=== PATIENT | male | born 1985 | race Asian ===

== ENCOUNTER 2016-05-18 19:08 | Emergency (ER) | payer SELFPAY ==
--- NOTE | ~2016-05-18 | ER ---
PATIENT'S NAME: [facility] AGE: 30 Y [address] ROOM: [place] [address] LOCATION: ED ADMIT DATE: 05/18/2016 ER/Outpatient Report DISCHARGE DATE: 05/18/2016 FAMILY PHYSICIAN: PHYSICIAN, NO ATTENDING PHYSICIAN: Kayden Juarez Time of Arrival: 1912 hours. Time of Evaluation: 1912 hours. CHIEF COMPLAINT: Abdominal pain. HISTORY OF PRESENT ILLNESS: The patient states having right lower quadrant abdominal pain that began on , May 13, 2016. It has steadily gotten worse. He was seen yesterday at the [place] [facility], checked for possible kidney stone, that was all negative. He said the pain today really got intense at about 4 o'clock. He has had urinary frequency. He has had a crampy stabbing-type pain that is worse at times. It waxes and wanes in severity. He states he did have some blood in his stool today. Pain is primarily in the right lower quadrant, but does radiate around into the right flank area. Denies having any cough, cold, runny nose, chest congestion, has not been nauseated, has not vomited, has not had a fever. He did have a small bowel movement today and that is when he noted the blood when he wiped. ALLERGIES: NO KNOWN ALLERGIES. CURRENT MEDICATIONS: None. PAST MEDICAL HISTORY: Kidney stones. PAST SURGICAL HISTORY: Kidney stone removal. SOCIAL HISTORY: He states he does smoke 3 cigarettes per day. He has smoked for the last 17 years. Denies use of drugs. He states he only drinks alcohol on a social basis. REVIEW OF SYSTEMS: All negative other than those mentioned in the HPI. PATIENT'S NAME: [facility] AGE: 30 Y [address] ROOM: [place] [address] LOCATION: [facility] ADMIT DATE: 05/18/2016 ER/Outpatient Report DISCHARGE DATE: 05/18/2016 FAMILY PHYSICIAN: PHYSICIAN, NO ATTENDING PHYSICIAN: Kayden Juarez PHYSICAL EXAMINATION: VITAL SIGNS: He states he is 6 feet tall, he weighed 89.4 kg, blood pressure is 122/65, pulse of 95, respirations 18, temperature of 98, O2 saturation is 95% on room air. GENERAL: He is awake, alert, and oriented x4. SKIN: [place], warm, and dry. RESPIRATIONS: Even and nonlabored. LUNGS: Lung sounds were clear throughout. HEART: Regular rate and rhythm. ABDOMEN: Soft and nondistended. Bowel sounds are hyperactive in all quadrants. He has generalized tenderness in the right lower quadrant area. No masses felt. No organomegaly is noted. No CVA tenderness. With checking of his back, he does have some generalized pain that radiates into the right groin at times. No rashes noted of groin area. No deformity noted. EMERGENCY DEPARTMENT COURSE: Saline lock was initiated. Fluids of normal saline were started at a wide- open rate. He was given Toradol 30 mg IV. CBC is within normal limits. Chem panel is within normal limits. Procalcitonin was less than 0.05. Sedimentation rate was 7. CRP was 0.39. Lactate was 1.4. Clean-catch UA was negative. I did do a CT scan with contrast. Radiology report is on the chart, please review. He does have some prominent right lower quadrant lymph nodes near the terminal ileum. CT scan shows mild enteritis or terminal ileitis. Dr. Juarez consulted about the patient. IMPRESSION: Right lower quadrant abdominal pain, ileitis per the CAT scan. PLAN: Home, rest, fluids. Discussed with the patient easy digest-type foods. Gave him the contact information to contact the manager mechanical maintenance, Dr. Silverio, or Janie Bernard APRN. He should contact him and make arrangements to be seen in the next couple days. If the pain changes in any way, he is welcome to return to the ER. He verbalized understanding. LARRY BROWNING APRN FOR MD ISABELLA MARISCAL/jairo /[id number] d: 05/19/16 0216 t: 05/20/16 1304, OUTPATIENT REPORT
[2016-05-18 19:53] LABS: BASOPHIL % 0.3 %; EOSINOPHIL # 0.2 K/uL (0.0-0.5); EOSINOPHIL % 1.9 %; HEMATOCRIT 46.2 % (37.0-53.0); HEMOGLOBIN 15.2 g/dL (12.0-17.0); IMMATURE GRANULOCYTE % 0.3 %; LYMPHOCYTE # 2.9 K/uL (0.8-4.0); LYMPHOCYTE % 28.7 %; MCHC 32.9 gm/dL (32.0-36.5); MCV 88.2 fl (83.0-98.0); MONOCYTE # 0.9 K/uL (0.0-1.0); MONOCYTE % 8.8 %; MPV 9.9 fl (9.4-12.4); NRBC % 0 /100WBC (0-0.00); PLATELET COUNT 265 K/uL (150-450); RBC 5.24 M/uL (4.00-6.00); RDW-CV 12.1 % (11.9-14.6)
[2016-05-18 19:58] LABS: BILIRUBIN URINE NEGATIVE (NEGATIVE); BLOOD URINE NEGATIVE /UL (NEGATIVE); GLUCOSE URINE NEGATIVE (NEGATIVE); KETONE URINE NEGATIVE (NEGATIVE); LEUKOCYTES URINE NEGATIVE /UL (NEGATIVE); NITRITE URINE NEGATIVE (NEGATIVE); PROTEIN URINE NEGATIVE (NEGATIVE); SPEC GRAVITY URINE 1.015 (1.003-1.035); UROBILINOGEN URINE NORMAL (NORMAL)
[2016-05-18 19:59] LABS: COLOR URINE YELLOW (YELLOW); TURBIDITY URINE CLEAR (CLEAR)
[2016-05-18 20:08] LABS: ALBUMIN 3.6 gm/dL (3.5-5.0); ALK PHOS 59 IU/L (33-138); ALT 61 IU/L (12-78); ANION GAP 12.1 (10.0-19.0); AST 39 IU/L (10-40); BLOOD UREA NITROGEN 17 mg/dL (6-24); CALCIUM 8.5 mg/dL (8.5-10.5); CHLORIDE 105 mMol/L (96-110); CO2 29 mMol/L (22-32); ESTIMATED GFR (MDRD EQUATION) > 60; POTASSIUM 4.1 mMol/L (3.7-5.1); SODIUM 142 mMol/L (135-145); TOTAL BILIRUBIN 0.2 mg/dL (0.0-1.5)
== END 2016-05-18 21:36 | disposition disaster alternative care site (69) ==
LOC: GMED 19:08
PROVIDERS: Nurse Practitioner Family
DX: K52.9 Noninfective gastroenteritis and colitis, unspecified (principal); F17.210 Nicotine dependence, cigarettes, uncomplicated
CPT/HCPCS: J1885; J7030; Q9967